=== PATIENT | female | born 1960 | race Caucasian/White ===

== ENCOUNTER 2017-09-27 09:28 | Outpatient (CLI) | payer BC, OTHER ==
[2015-12-25 23:33] VITALS: BP 110/67
[2017-09-27 10:23] LABS: eGFR (African) > 60; eGFR (Non-African) > 60
[2017-09-27 10:31] LABS: APPEARANCE,URINE Slightly Cloudy (CLEAR); COLOR,URINE Amber (YELLOW); OCCULT BLOOD,URINE Negative (NEGATIVE); UROBILINOGEN URINE 0.2 Eu (0.2-1.0)
== END 2017-09-27 09:35 ==
LOC: LAB 09:28
PROVIDERS: ATTEND Family Medicine
DX: E11.9 Type 2 diabetes mellitus without complications (principal)
CPT/HCPCS: 36415; 80053; 80061; 81002; 83036

== ENCOUNTER 2018-12-31 07:46 | Outpatient (CLI) | payer OTHER ==
[2015-12-25 23:33] VITALS: BP 110/67
[2018-12-31 08:19] LABS: eGFR (Non-African) > 60
== END 2018-12-31 07:48 ==
LOC: LAB 07:46
PROVIDERS: ATTEND Nurse Practitioner Family
DX: E11.65 Type 2 diabetes mellitus with hyperglycemia (principal)
CPT/HCPCS: 36415; 80053; 80061; 83036